=== PATIENT | male | born 1940 | race Caucasian/White ===

== ENCOUNTER 2016-11-29 20:55 | Emergency (ER) | payer OTHER ==
[~2016-11-29] VITALS: Ht 165.1 cm; Wt 71.3 kg
[~2016-11-29 20:55] MED LIST: ALLOPURINOL100 MG PO; ALLOPURINOL300 MG PO; ASPIR-LOW81 MG PO; BUMETANIDE1 MG PO; CALCIUM ACETAT667 MG PO; CARVEDILOL6.25 MG PO; ERGOCALCIF50000 UNIT PO; HYDROCODON-ACE1 EAC8 PO; MULTIPLE VITAM1 EACH PO; OSTEO BI-FLEX1 EAC3 PO; OXYCODONE HCL5 MG PO; PANTOPRAZOLE SO40 MG PO; PREDNISONE20 MG PO; TAMSULOSIN HCL0.4 MG PO
[2016-11-29 21:32] LABS: HEMATOCRIT 33.1 % (38.0-50.0); MCH 24.2 PG (29.0-34.0); MCHC 29.3 G/DL (30.0-36.0); MCV 82.5 FL (86-99); MEAN PLAT.VOLUME 10.7 uM^3 (9.0-12.4); PLATELET COUNT 234 K/uL (156-360); RBC DIS.WIDTH-CV 13.9 % (11.8-14.6); RBC DIS.WIDTH-SD 41.8 % (39-53); RED BLOOD COUNT 4.01 M/uL (4.00-5.50); WHITE BLOOD COUNT 5.8 K/uL (4.1-10.2)
[2016-11-29 21:56] LABS: CHLORIDE 110 mEq/L (99-109); POTASSIUM 3.7 mEq/L (3.7-5.4); SODIUM 142 mEq/L (136-147)
[2016-11-29 21:58] LABS: GLUCOSE 113 mg/dL (70-99)
[2016-11-29 21:59] LABS: ANION GAP 7 MEQ/L (2-14)
[2016-11-29 22:00] LABS: TROP-I INTERPRETATION NEGATIVE; TROPONIN-I < 0.01 ng/mL (0.0-0.30)
[2016-11-29 22:01] LABS: GFR ESTIMATE (CALCULATED) > 59 mL/min/
[2016-11-29 22:02] LABS: UREA NITROGEN (BUN) 18 mg/dL (9-23)
[2016-11-29] MEDS ORDERED: PRINIVIL10 MG PO (22:05)
[2016-11-29] MEDS ORDERED: COREG6.25 M1 PO (22:05)
[2016-11-29 22:27] VITALS: BP 155/70
== END 2016-11-29 22:30 | disposition home or self-care (01) ==
LOC: EME 20:55
DX: I10 Essential (primary) hypertension (principal); Z87.891 Personal history of nicotine dependence
CPT/HCPCS: 80048; 84484; 85027; 93005; 99281; 99284

== ENCOUNTER 2017-03-27 09:02 | Emergency (ER) | payer OTHER ==
[~2017-03-27] VITALS: Ht 167.6 cm; Wt 67.3 kg
[~2017-03-27 09:02] MED LIST changes: +COREG6.25 M1 PO; +PRINIVIL10 MG PO
[2017-03-27] MEDS ORDERED: TYLENOL WITH C1 EACH PO (11:18)
[2017-03-27 11:27] VITALS: BP 158/73
== END 2017-03-27 11:33 | disposition home or self-care (01) ==
LOC: EME 09:02
DX: H57.12 Ocular pain, left eye (principal); R11.2 Nausea with vomiting, unspecified; I12.9 Hypertensive chronic kidney disease with stage 1 through stage 4 chronic kidney disease, or unspecified chronic kidney disease; N18.9 Chronic kidney disease, unspecified; Z87.891 Personal history of nicotine dependence
CPT/HCPCS: 99281; 99283

== ENCOUNTER 2017-12-07 19:10 | Observation (INO) | payer OTHER ==
[~2017-12-07] VITALS: Ht 165.1 cm; Wt 66.4 kg
[~2017-12-07 19:10] MED LIST changes: +TYLENOL WITH C1 EACH PO
[2017-12-07 20:36] LABS: HEMATOCRIT 28.1 % (38.0-50.0); HEMOGLOBIN 7.9 G/DL (12.5-16.6); MCH 19.8 PG (29.0-34.0); MCHC 28.1 G/DL (30.0-36.0); MCV 70.6 FL (86-99); PLATELET COUNT 215 K/uL (156-360); RBC DIS.WIDTH-CV 18.3 % (11.8-14.6); RBC DIS.WIDTH-SD 45.8 % (39-53); RED BLOOD COUNT 3.98 M/uL (4.00-5.50); WHITE BLOOD COUNT 5.4 K/uL (4.1-10.2)
[2017-12-07 20:42] LABS: CHLORIDE 112 mEq/L (99-109); POTASSIUM 4.1 mEq/L (3.7-5.4); SODIUM 146 mEq/L (136-147)
[2017-12-07 20:44] LABS: GLUCOSE 87 mg/dL (70-99)
[2017-12-07 20:48] LABS: CREATININE 0.7 mg/dL (0.6-1.3); GFR ESTIMATE (CALCULATED) > 59 mL/min/ (58.99-99999)
[2017-12-07 20:49] LABS: UREA NITROGEN (BUN) 17 mg/dL (9-23)
[2017-12-07 22:25] LABS: TROP-I INTERPRETATION NEGATIVE; TROPONIN-I < 0.01 ng/mL (0.0-0.30)
[2017-12-08 03:57] VITALS: BP 212/89
[2017-12-08 07:49] VITALS: BP 196/86
[2017-12-08 11:34] VITALS: BP 188/77
[2017-12-08] MEDS ORDERED: ZYLOPRIM300 MG PO (15:08)
[2017-12-08] MEDS ORDERED: COREG6.25 M1 PO (15:09)
[2017-12-08] MEDS ORDERED: LOW DOSE ASPIRI81 M1 PO (15:09)
[2017-12-08] MEDS ORDERED: FLOMAX0.4 MG PO (15:12)
[2017-12-08] MEDS ORDERED: PROGRAF0.5 MG PO (15:13)
[2017-12-08] MEDS ORDERED: HYDROCODON-ACE1 EAC8 PO (15:15)
[2017-12-08] MEDS ORDERED: NEURONTIN300 MG PO (15:16)
[2017-12-08] MEDS ORDERED: PROSCAR5 MG PO (15:16)
[2017-12-08] MEDS ORDERED: VITAMIN B122500 MCG PO (15:17)
[2017-12-08] MEDS ORDERED: CYANOCOBALAM1000 MCG PO (15:18)
[2017-12-08 15:34] VITALS: BP 160/68
[2017-12-08 16:18] VITALS: BP 130/62
[2017-12-08] MEDS ORDERED: PROCARDIA XL60 MG PO (16:18)
[2017-12-08] MEDS ORDERED: LISINOPRIL20 MG PO (16:18)
[2017-12-08] MEDS ORDERED: PRINIVIL10 MG PO (17:29)
== END 2017-12-08 17:31 | disposition home or self-care (01) ==
LOC: EME 19:10 → EDOF 12-08 02:25 → ENRESERV 12-08 02:28 → 5WEST 12-08 03:38
PROVIDERS: Emergency Medicine
DX: I16.0 Hypertensive urgency (principal); D64.9 Anemia, unspecified; I12.9 Hypertensive chronic kidney disease with stage 1 through stage 4 chronic kidney disease, or unspecified chronic kidney disease; N18.3 Chronic kidney disease, stage 3 (moderate); R51 Headache; Z86.73 Personal history of transient ischemic attack (TIA), and cerebral infarction without residual deficits; E78.5 Hyperlipidemia, unspecified; N40.0 Benign prostatic hyperplasia without lower urinary tract symptoms; M10.9 Gout, unspecified; Z87.11 Personal history of peptic ulcer disease; Z90.49 Acquired absence of other specified parts of digestive tract; Z87.891 Personal history of nicotine dependence; Z86.010 Personal history of colon polyps; Z87.19 Personal history of other diseases of the digestive system; Z90.3 Acquired absence of stomach [part of]
CPT/HCPCS: 70450; 71045; 71250; 74176; 76770; 80048 91; 82272; 84484; 85027; 93005; 93975; 99281; 99284; G0378; J1644